=== PATIENT | male | born 1970 | race Caucasian/White ===

== ENCOUNTER 2020-04-12 05:23 | Inpatient (IN) ==
[2020-04-12] MEDS ORDERED: SODIUM CHLORIDE 0.9% 1,000 ML IV STA ×2 (06:08→06:58)
[2020-04-12 07:07] LABS: Basophils # 0.1 10*3/uL (0.0-0.2); Basophils % 0.5 % (0.0-0.8); Eosinophils % 0.3 % (0.00-10.9); Hematocrit 34.3 VOL% (42.0-52.0); Hemoglobin 10.8 GM/DL (14.0-18.0); Immature Granulocytes % 0.6 %; Immature Granulocytes Absolute 0.06 #; Lymphocytes # 0.5 10*3/uL (1.4-4.0); Lymphocytes % 5.3 % (21.2-54.2); Mean Corpuscular HGB Conc 31.5 GM/DL (32-36); Mean Corpuscular Volume 83.3 FL (87-102); Mean Platelet Volume 11.3 FL (9.6-12.0); Neutrophils % 88.3 % (38.7-73.9); Platelet Count 179 T/CUMM (130-400); Red Blood Count 4.12 MC/CUMM (3.8-5.5); Red Cell Distribution Width 19.6 % (9.3-17.3); White Blood Count 9.7 T/CUMM (4-12)
[2020-04-12] MEDS ORDERED: CEFEPIME 1,000 MG in SODIUM CHLORIDE 0.9% 100 ML IV STA (07:21)
[2020-04-12 07:27] LABS: Alanine Aminotransferase 88 U/L (16-61); Albumin 1.5 G/DL (3.4-5.0); Alkaline Phosphatase 793 U/L (45-117); Aspartate Amino Transferase 254 U/L (0-37); Blood Urea Nitrogen 36 MG/DL (7-18); Calcium 8.3 MG/DL (8.5-10.1); Estimated Glom Filtration Rate 61 ML/MIN; Glucose 80 MG/DL (74-106); Osmolality,Calculated 266.8 MOS/KG (273-304); Total Protein 5.1 G/DL (6.4-8.3)
[2020-04-12] MEDS ORDERED: CEFEPIME 1,000 MG VIAL ONE (07:36)
[2020-04-12 07:41] LABS: Acanthocytes Few; Band Neutrophils 11 % (0-10); Hypochromasia Slight; Lymphocytes 5 % (20-55); Microcytosis Slight; Platelet Estimate Adequate; Segmented Neutrophils 81 % (50-85); Total Cells Counted 100
[2020-04-12] MEDS ORDERED: ACETAMINOPHEN 325 MG TABLET PO PRN (08:14)
[2020-04-12] MEDS ORDERED: ALBUTEROL 2.5 MG/3 ML NEB RESP TX PRN (08:14)
[2020-04-12] MEDS ORDERED: ZALEPLON 5 MG CAPSULE PO PRN (08:14)
[2020-04-12] MEDS ORDERED: SODIUM BICARBONATE 50 MEQ/50 ML VIAL IV STA (08:16)
[2020-04-12] MEDS ORDERED: SODIUM CHLORIDE 0.9% 2,200 ML IV ONE (08:16)
[2020-04-12] MEDS ORDERED: PIPERACILLIN/TAZOBACTAM 3,375 MG in SODIUM CHLORIDE 0.9% 100 ML IV SCH (08:30)
[2020-04-12] MEDS ORDERED: ENOXAPARIN 40 MG/0.4 ML SYRINGE SUBCUT SCH (08:30)
[2020-04-12] MEDS ORDERED: SODIUM CHLORIDE 0.9% 500 ML IV STA (08:32)
[2020-04-12] MEDS: LACTATED RINGERS 1,000 ML IV SCH ×3 (09:00→18:37)
[2020-04-12] MEDS: PANTOPRAZOLE 40 MG VIAL IV SCH (10:11)
[2020-04-12] MEDS: CEFEPIME 2,000 MG in SYRINGE 1 EACH IV SCH ×4 (10:14→18:36)
[2020-04-12] MEDS: NOREPINEPHRINE 8 MG in SODIUM CHLORIDE 0.9% 242 ML IV SCH (11:38)
[2020-04-12] MEDS ORDERED: LACTATED RINGERS 500 ML IV ONE (13:30)
[2020-04-12] MEDS ORDERED: MAGNESIUM SULF RIDER 4 GM in PREMIX 1 EACH IV ONE (14:32)
[2020-04-12] MEDS ORDERED: GLUCAGON 1 MG VIAL IM PRN (14:34)
[2020-04-12] MEDS ORDERED: DEXTROSE 50% 25 GM/50 ML VIAL IV PRN (14:34)
[2020-04-12 15:12] LABS: Apearance,Urine Slightly Hazy (Clear); Blood, Urine Large mg/dL (Negative); Glucose,Urine (UA) 50 mg/dL (Negative); Hyaline Casts,Urine 1 /LPF (0-3); Ketones,Urine Negative (Negative); Mucus,Urine Occasional /LPF (Occasional); Nitrite,Urine Negative (Negative); Protein,Urine 30 MG/DL; RBC,Urine 14 /HPF (0-4); Squamous Epithelial Cell,Urine Occasional /HPF (0-10); Urine Color Amber (Yellow); Urine Specific Gravity 1.019 (1.001-1.035); WBC,Urine 3 /HPF (0-6)
[2020-04-12 15:14] LABS: Bilirubin,Urine Moderate mg/dL (Negative)
[2020-04-12 17:31] LABS: Hepatitis B Core IgM Quant 0.14 Index; Hepatitis B Surface Ag Quant 0.62 Index; Hepatitis B Surface Ag Result Negative (Negative); Hepatitis C Virus Ab Quant 0.04 Index; Hepatitis C Virus Ab Result Negative (Negative)
[2020-04-12 17:35] LABS: INR 1.4; PT Patient Result 14.9 SECS (9.8-11.9)
[2020-04-12] MEDS: INSULIN REGULAR 100 UNIT/ML SUBCUT SCH ×2 (17:44→20:26)
[2020-04-12] MEDS: ASCORBIC ACID 500 MG TABLET PO SCH (20:26)
[2020-04-12] MEDS: ENOXAPARIN 80 MG/0.8 ML SYRINGE SUBCUT SCH (20:26)
[2020-04-12] MEDS: AZITHROMYCIN INJ 500 MG in SODIUM CHLORIDE 0.9% 250 ML IV SCH (20:26)
[2020-04-13 02:36] LABS: Basophils # 0.1 10*3/uL (0.0-0.2); Basophils % 0.4 % (0.0-0.8); Eosinophils # 0.1 10*3/uL (0.0-0.87); Eosinophils % 0.4 % (0.00-10.9); Hematocrit 33.4 VOL% (42.0-52.0); Immature Granulocytes % 1.6 %; Lymphocytes # 0.5 10*3/uL (1.4-4.0); Lymphocytes % 2.7 % (21.2-54.2); Mean Corpuscular HGB Conc 32.9 GM/DL (32-36); Mean Corpuscular Volume 81.1 FL (87-102); Mean Platelet Volume 11.1 FL (9.6-12.0); Monocytes % 3.8 % (1.7-12.7); NRBC # 0.02 10*3/uL; Neutrophils % 91.1 % (38.7-73.9); Platelet Count 193 T/CUMM (130-400); Red Blood Count 4.12 MC/CUMM (3.8-5.5); Red Cell Distribution Width 19.7 % (9.3-17.3); White Blood Count 18.9 T/CUMM (4-12)
[2020-04-13 02:42] LABS: Albumin 1.3 G/DL (3.4-5.0); Bilirubin,Total 4.3 MG/DL (0.2-1.0); Calcium 8.4 MG/DL (8.5-10.1); Osmolality,Calculated 268.9 MOS/KG (273-304); Total Protein 5.8 G/DL (6.4-8.3)
[2020-04-13 02:51] LABS: Ferritin 1705.3 ng/ml (26-388)
[2020-04-13 03:24] LABS: Band Neutrophils 7 % (0-10); Lymphocytes 5 % (20-55); Metamyelocytes 1 %; Segmented Neutrophils 81 % (50-85); Total Cells Counted 100
[2020-04-13 03:25] LABS: Platelet Estimate Normal
[2020-04-13 03:27] LABS: Microcytosis 1+
[2020-04-13] MEDS: LACTATED RINGERS 1,000 ML IV SCH ×3 (03:48→23:53)
[2020-04-13] MEDS: CEFEPIME 2,000 MG in SYRINGE 1 EACH IV SCH ×3 (04:20→20:36)
[2020-04-13] MEDS: NOREPINEPHRINE 8 MG in SODIUM CHLORIDE 0.9% 242 ML IV SCH (07:45)
[2020-04-13] MEDS: ENOXAPARIN 80 MG/0.8 ML SYRINGE SUBCUT SCH ×2 (09:27→17:59)
[2020-04-13] MEDS: INSULIN REGULAR 100 UNIT/ML SUBCUT SCH ×4 (09:28→22:25)
[2020-04-13] MEDS: PANTOPRAZOLE 40 MG VIAL IV SCH (09:28)
[2020-04-13] MEDS: ZINC SULFATE 220 MG CAPSULE PO SCH (09:29)
[2020-04-13] MEDS: DEXAMETHASONE 4 MG/1 ML VIAL IV SCH (09:29)
[2020-04-13] MEDS: ASCORBIC ACID 500 MG TABLET PO SCH ×2 (09:29→21:35)
[2020-04-13 14:02] LABS: HIV Antigen/Antibody Result Nonreactive (Nonreactive); Hepatitis B Surface Ag Quant < 0.10 Index; Hepatitis B Surface Ag Result Negative (Negative); Hepatitis C Virus Ab Quant 0.04 Index; Hepatitis C Virus Ab Result Negative (Negative)
[2020-04-13] MEDS: AZITHROMYCIN INJ 500 MG in SODIUM CHLORIDE 0.9% 250 ML IV SCH (20:36)
[2020-04-14] MEDS: CEFEPIME 2,000 MG in SYRINGE 1 EACH IV SCH ×3 (04:50→20:12)
[2020-04-14 05:00] LABS: Basophils # 0.1 10*3/uL (0.0-0.2); Basophils % 0.6 % (0.0-0.8); Hematocrit 38.4 VOL% (42.0-52.0); Hemoglobin 12.6 GM/DL (14.0-18.0); Immature Granulocytes % 1.7 %; Immature Granulocytes Absolute 0.41 #; Lymphocytes % 4.4 % (21.2-54.2); Mean Corpuscular HGB Conc 32.8 GM/DL (32-36); Mean Corpuscular Volume 80.3 FL (87-102); Mean Platelet Volume 11.4 FL (9.6-12.0); Monocytes % 3.2 % (1.7-12.7); Neutrophils % 90.1 % (38.7-73.9); Platelet Count 169 T/CUMM (130-400); Red Blood Count 4.78 MC/CUMM (3.8-5.5); White Blood Count 23.7 T/CUMM (4-12)
[2020-04-14 05:53] LABS: Band Neutrophils 11 % (0-10); Hypochromasia 1+; Lymphocytes 1 % (20-55); Metamyelocytes 2 %; Segmented Neutrophils 79 % (50-85); Total Cells Counted 100
[2020-04-14 05:54] LABS: Microcytosis 1+; Platelet Estimate Adequate
[2020-04-14 06:01] LABS: Albumin 1.5 G/DL (3.4-5.0); Bilirubin,Total 5.5 MG/DL (0.2-1.0); Calcium 8.9 MG/DL (8.5-10.1); Ferritin 2643.2 ng/ml (26-388); Osmolality,Calculated 267.8 MOS/KG (273-304); Total Protein 6.5 G/DL (6.4-8.3)
[2020-04-14 06:47] LABS: Sedimentation Rate-Westergren 78 MM/HR (0-20)
[2020-04-14] MEDS: ASCORBIC ACID 500 MG TABLET PO SCH ×2 (08:30→20:13)
[2020-04-14] MEDS: DEXAMETHASONE 4 MG/1 ML VIAL IV SCH (08:30)
[2020-04-14] MEDS: PANTOPRAZOLE 40 MG VIAL IV SCH (08:30)
[2020-04-14] MEDS: MULTIVITAMIN (CENTRUM) TABLET PO SCH (08:30)
[2020-04-14] MEDS: ZINC SULFATE 220 MG CAPSULE PO SCH (08:30)
[2020-04-14] MEDS: INSULIN REGULAR 100 UNIT/ML SUBCUT SCH ×4 (08:30→20:12)
[2020-04-14] MEDS: ENOXAPARIN 80 MG/0.8 ML SYRINGE SUBCUT SCH ×2 (08:30→19:47)
[2020-04-14] MEDS: NOREPINEPHRINE 8 MG in SODIUM CHLORIDE 0.9% 242 ML IV SCH (09:04)
[2020-04-14] MEDS: LACTATED RINGERS 1,000 ML IV SCH (11:04)
[2020-04-14] MEDS: METOPROLOL TARTRATE 25 MG TABLET PO SCH ×2 (12:02→20:13)
[2020-04-14] MEDS: ONDANSETRON 4 MG/2 ML VIAL IV PRN (12:07)
[2020-04-14] MEDS: AZITHROMYCIN INJ 500 MG in SODIUM CHLORIDE 0.9% 250 ML IV SCH (20:30)
[2020-04-15] MEDS: CEFEPIME 2,000 MG in SYRINGE 1 EACH IV SCH (04:49)
[2020-04-15] MEDS: ENOXAPARIN 80 MG/0.8 ML SYRINGE SUBCUT SCH (06:02)
[2020-04-15 07:00] LABS: Basophils # 0.2 10*3/uL (0.0-0.2); Basophils % 0.6 % (0.0-0.8); Hemoglobin 11.7 GM/DL (14.0-18.0); Immature Granulocytes % 3.7 %; Immature Granulocytes Absolute 1.07 #; Lymphocytes # 1.2 10*3/uL (1.4-4.0); Lymphocytes % 4.1 % (21.2-54.2); Mean Corpuscular HGB Conc 33.4 GM/DL (32-36); Mean Corpuscular Volume 79.2 FL (87-102); Mean Platelet Volume 11.5 FL (9.6-12.0); Monocytes % 3.7 % (1.7-12.7); Neutrophils % 87.9 % (38.7-73.9); Platelet Count 137 T/CUMM (130-400); Red Blood Count 4.42 MC/CUMM (3.8-5.5); White Blood Count 29.1 T/CUMM (4-12)
[2020-04-15 07:33] LABS: Albumin 1.4 G/DL (3.4-5.0); Bilirubin,Total 6.3 MG/DL (0.2-1.0); Calcium 8.6 MG/DL (8.5-10.1); Osmolality,Calculated 266.5 MOS/KG (273-304); Total Protein 5.9 G/DL (6.4-8.3)
[2020-04-15] MEDS: INSULIN REGULAR 100 UNIT/ML SUBCUT SCH ×4 (07:40→21:24)
[2020-04-15 07:44] LABS: Anisocytosis 2+; Band Neutrophils 10 % (0-10); Hypochromasia 2+; Lymphocytes 3 % (20-55); Metamyelocytes 2 %; Microcytosis 1+; Segmented Neutrophils 83 % (50-85); Total Cells Counted 100
[2020-04-15 07:45] LABS: Platelet Estimate Adequate; Polychromasia Slight; Target Cells Few
[2020-04-15] MEDS: ASCORBIC ACID 500 MG TABLET PO SCH ×2 (09:08→21:25)
[2020-04-15] MEDS: METOPROLOL TARTRATE 25 MG TABLET PO SCH ×2 (09:08→21:24)
[2020-04-15] MEDS: MULTIVITAMIN (CENTRUM) TABLET PO SCH (09:08)
[2020-04-15] MEDS: ZINC SULFATE 220 MG CAPSULE PO SCH (09:08)
[2020-04-15] MEDS: DEXAMETHASONE 4 MG/1 ML VIAL IV SCH (09:08)
[2020-04-15] MEDS: PANTOPRAZOLE 40 MG VIAL IV SCH (09:15)
[2020-04-15 09:32] LABS: Sedimentation Rate-Westergren 66 MM/HR (0-20)
[2020-04-15] MEDS: ONDANSETRON 4 MG/2 ML VIAL IV PRN (09:46)
[2020-04-15] MEDS ORDERED: ALBUMIN 25% 25 GM in PREMIX 1 EACH IV ONE (15:00)
[2020-04-15] MEDS: CEFEPIME 1,000 MG in SODIUM CHLORIDE 0.9% 100 ML IV SCH ×2 (16:34→21:25)
[2020-04-15] MEDS: AZITHROMYCIN 250 MG TABLET PO SCH (16:35)
[2020-04-15] MEDS: ENOXAPARIN 40 MG/0.4 ML SYRINGE SUBCUT SCH (21:26)
[2020-04-16] MEDS: CEFEPIME 1,000 MG in SODIUM CHLORIDE 0.9% 100 ML IV SCH ×4 (03:28→21:50)
[2020-04-16 06:48] LABS: Basophils % 0.2 % (0.0-0.8); Hematocrit 31.1 VOL% (42.0-52.0); Hemoglobin 10.2 GM/DL (14.0-18.0); Immature Granulocytes % 1.3 %; Immature Granulocytes Absolute 0.24 #; Lymphocytes % 5.5 % (21.2-54.2); Mean Corpuscular HGB Conc 32.8 GM/DL (32-36); Mean Corpuscular Volume 81.8 FL (87-102); Mean Platelet Volume 12.2 FL (9.6-12.0); Monocytes % 4.5 % (1.7-12.7); Neutrophils % 88.5 % (38.7-73.9); White Blood Count 17.9 T/CUMM (4-12)
[2020-04-16 06:51] LABS: Platelet Count 74 T/CUMM (130-400)
[2020-04-16 07:12] LABS: Albumin 1.5 G/DL (3.4-5.0); Calcium 8.7 MG/DL (8.5-10.1); Osmolality,Calculated 275.8 MOS/KG (273-304); Total Protein 5.3 G/DL (6.4-8.3)
[2020-04-16 07:58] LABS: Anisocytosis 2+; Band Neutrophils 16 % (0-10); Lymphocytes 4 % (20-55); Platelet Estimate Decreased; Segmented Neutrophils 74 % (50-85); Total Cells Counted 100
[2020-04-16] MEDS: INSULIN REGULAR 100 UNIT/ML SUBCUT SCH ×4 (09:09→20:40)
[2020-04-16] MEDS: ZINC SULFATE 220 MG CAPSULE PO SCH (09:13)
[2020-04-16] MEDS: AZITHROMYCIN 250 MG TABLET PO SCH (09:13)
[2020-04-16] MEDS: METOPROLOL TARTRATE 25 MG TABLET PO SCH ×2 (09:14→21:50)
[2020-04-16] MEDS: ASCORBIC ACID 500 MG TABLET PO SCH ×2 (09:14→21:50)
[2020-04-16] MEDS: ENOXAPARIN 40 MG/0.4 ML SYRINGE SUBCUT SCH ×2 (09:14→21:50)
[2020-04-16] MEDS: MULTIVITAMIN (CENTRUM) TABLET PO SCH (09:14)
[2020-04-16] MEDS: DEXAMETHASONE 4 MG/1 ML VIAL IV SCH (12:24)
[2020-04-17 06:33] LABS: Basophils # 0.1 10*3/uL (0.0-0.2); Basophils % 0.5 % (0.0-0.8); Hematocrit 34.5 VOL% (42.0-52.0); Hemoglobin 11.5 GM/DL (14.0-18.0); Immature Granulocytes Absolute 0.24 #; Lymphocytes # 0.7 10*3/uL (1.4-4.0); Lymphocytes % 2.7 % (21.2-54.2); Mean Corpuscular HGB Conc 33.3 GM/DL (32-36); Mean Corpuscular Volume 80.4 FL (87-102); Mean Platelet Volume 12.6 FL (9.6-12.0); Monocytes % 0.7 % (1.7-12.7); Neutrophils % 95.1 % (38.7-73.9); Red Blood Count 4.29 MC/CUMM (3.8-5.5); Red Cell Distribution Width 20.4 % (9.3-17.3); White Blood Count 23.7 T/CUMM (4-12)
[2020-04-17 06:44] LABS: Platelet Count 92 T/CUMM (130-400)
[2020-04-17 06:52] LABS: Band Neutrophils 6 % (0-10); Hypochromasia 1+; Lymphocytes 3 % (20-55); Microcytosis Slight; Platelet Estimate Decreased; Segmented Neutrophils 91 % (50-85); Total Cells Counted 100
[2020-04-17 07:22] LABS: Albumin 1.5 G/DL (3.4-5.0); Bilirubin,Total 9.2 MG/DL (0.2-1.0); Calcium 8.8 MG/DL (8.5-10.1); Osmolality,Calculated 275.8 MOS/KG (273-304); Total Protein 5.5 G/DL (6.4-8.3)
[2020-04-17] MEDS: ZINC SULFATE 220 MG CAPSULE PO SCH (08:25)
[2020-04-17] MEDS: MULTIVITAMIN (CENTRUM) TABLET PO SCH (08:25)
[2020-04-17] MEDS: ASCORBIC ACID 500 MG TABLET PO SCH (08:25)
[2020-04-17] MEDS: DEXAMETHASONE 4 MG/1 ML VIAL IV SCH (08:25)
[2020-04-17] MEDS: ENOXAPARIN 40 MG/0.4 ML SYRINGE SUBCUT SCH (08:26)
[2020-04-17] MEDS: INSULIN REGULAR 100 UNIT/ML SUBCUT SCH ×2 (08:43→11:28)
[2020-04-17] MEDS: METOPROLOL TARTRATE 25 MG TABLET PO SCH ×2 (08:44→11:17)
[2020-04-17 11:19] VITALS: BP 114/66
== END 2020-04-17 13:53 | disposition home health service (06) | DRG 871 ==
LOC: EDUNIT# → EDBD → N.ED 05:23 → SUATTDRO 08:14 → N.EDINP 08:14 → N.ICU 08:30 → N.CC 20:51 → N.2E 04-14 13:16
PROVIDERS: ADMIT Family Medicine; ATTEND Internal Medicine